=== PATIENT | male | born 1960 | race Caucasian/White ===

== ENCOUNTER 2025-05-17 13:01 | Outpatient (OUT) | payer OTHER, SELFPAY ==
--- OUTSIDE RECORDS SUMMARY | 2025-05-03 13:00 | XMS_ITS | Encounter Summary ---
Author Organization [facility] Address [address] [place] [address] Care Team Providers Care Screen Machine Operator Name Role Phone Maame Hamilton MD Primary Care Provider [phone] Reason for Referral * - Pending ReviewSpecialtyDiagnoses / ProceduresReferred By ContactReferred To Contact Procedures Cryotherapy, skin lesion Erna Brizuela PA-C [address] [place] [address] Phone: tel: fax: Referral IDStatusReasonStart DateExpiration DateVisits RequestedVisits [id number] [id number] Reason for Visit * ReasonCommentsSkin Check Encounter Details DateTypeDepartmentCare Team (Latest Contact Info)Uikbphktquf73/15/2025 1:00 PM ESTFollow-Up [facility] [address] [place] [address] Erna Brizuela PA-C [address] [place] [address] Multiple benign melanocytic nevi (Primary Dx); Actinic keratosis; Seborrheic keratosis; Senile angioma; Dermatofibroma; Solar degeneration; Pruritus Social History Tobacco UseTypesPacks/DayYears UsedDateSmoking Tobacco: FormerCigarettes0.55.4 12/18/1978 - 05/19/1984Passive Smoke Exposure: PastSmokeless Tobacco: Never Tobacco Cessation:Counseling Given: Not Answered Alcohol UseStandard Drinks/WeekCommentsNot Currently0 (1 standard drink = 0.6 oz pure alcohol)Social Connection and Isolation PanelAnswerDate RecordedIn a typical week, how many times do you talk on the phone with family, friends, or neighbors?More than three times a week03/01/2024How often do you get together with friends or relatives?Twice a week03/01/2024How often do you attend samaritan or moravian services?More than 4 times per year03/01/2024o you belong to any clubs or organizations such as samaritan groups, unions, [employer] or athletic luke ups, or school groups?No03/01/2024How often do you attend meetings of the clubs or organizations you belong to?Never03/01/2024re you , , , , never , or living with a partner?Clekdjb5303/01/2024 PHQ-2AnswerDate RecordedPatient Health Questionnaire-2 Rengs19207/01/2024 Humiliation, Afraid, Rape, and Kick questionnaireAnswerDate RecordedWithin the last year, have you been afraid of your partner or ex-partner?No04/29/2025 Emotionally AbusedNot on file04/29/2025Physically AbusedNot on file04/29/2025 Sexually AbusedNot on file04/29/2025UDIT-CAnswerDate RecordedQ1: How often do you have a drink containing alcohol?Never04/30/2025Q2: How many drinks containing alcohol do you have on a typical day when you are drinking?Patient does not drink04/30/2025Q3: How often do you have six or more drinks on one occasion?Never04/30/2025Overall Financial Resource Strain (CARDIA)AnswerDate RecordedHow hard is it for you to pay for the very basics like food, housing, medical care, and heating?Not hard at all04/30/2025[facility] Occupational Health - Occupational Stress QuestionnaireAnswerDate RecordedDo you feel stress - tense, restless, nervous, or anxious, or unable to sleep at night because yourmind is troubled all the time - these days?Not at all04/30/2025 Exercise Vital SignAnswerDate RecordedOn average, how many days per week do you engage in moderate to strenuous exercise (like a brisk walk)?3 days04/30/2025On average, how many minutes do you engage in exercise at this level?30 min 04/30/2025B1300 Health LiteracyAnswerDate RecordedHow often do you need to have someone help you when you read instructions, pamphlets, or other written material from your doctor or pharmacy?Never04/30/2025HC UtilitiesAnswerDate RecordedIn the past 12 months has the [employer], [employer], or water [employer] threatened to shut off services in your home?No04/30/2025TransportationAnswer Date RecordedIn the past 12 months, has lack of transportation kept you from medical appointments or from getting medications?No04/30/2025In the past 12 months, has lack of transportation kept you from meetings, work, or from getting things needed for daily living?No04/30/2025Housing Stability Vital SignAnswer Date RecordedIn the last 12 months, was there a time when you were not able to pay the mortgage or rent on time?No04/30/2025Number of Times Moved in the Last YearNot on file04/30/2025t any time in the past 12 months, were you homeless or living in a mcc (including now)?No04/30/2025Hunger Vital SignAnswerDate RecordedWithin the past 12 months, you worried that your food would run out before you got the money to buymore.Never true04/30/2025Within the past 12 months, the food you bought just didn't last and you didn't have money to get more.Never true04/30/2025Sex and Gender InformationValueDate RecordedSex Assigned at TngczCvlq16/07/2023 10:15 AM EDTLegal SruJgmj0911/15/2021 11:29 PM EDT Gender EckfrvbkByur94/07/2023 10:15 AM EDTSexual OrientationHeterosexual or Ucwxstta96/07/2023 10:15 AM EDTdocumented as of this encounter Last Filed Vital Signs Vital SignReadingTime TakenCommentsBlood Bdckwbwc586/80107/04/2024 12:49 PM EST Pulse--Temperature--Respiratory Rate--Oxygen Saturation--Inhaled Oxygen Concentration--Hvspaj19.7 kg (200 lb)05/03/2025 12:49 PM BVZNsnpjs524.8 cm (5' 10 )05/03/2025 12:49 PM ESTBody Mass Index28.7107/04/2024 12:49 PM ESTdocumented in this encounter Functional Status documented as of this encounter Progress Notes * Erna Brizuela PA-C - 05/03/2025 1:00 PM EST Subjective Barrett Bardales is a 64 y.o. male with hx of alopecia areata and AKs who presents for the following: TBSE. He has noticed a few rough lesions on his back that fall off when picked. He requests a refill of his triamcinolone cream which he uses PRN itching. No other concerns. Patient works for [employer] and he and his live in [facility] for his job. Review of Systems Constitutional: Negative for activity change, appetite change, fatigue and fever. Eyes: Negative for discharge, itching and visual disturbance. Skin: Negative for rash. Positive for lesion. Objective Well appearing patient in no apparent distress; mood and affect are within normal limits. Physical Exam Constitutional: General: He is not in acute distress. Appearance: Normal appearance. He is well-developed. HENT: Head: Normocephalic and atraumatic. Neurological: Mental Status: He is alert and oriented to person, place, and time. Skin Scalp: small waxy brown papules on L posterior scalp and R temporal scalp, smooth red papule on theL temporal scalp Head: few evenly pigmented macules on the forehead and temples, few small waxy brown papules on forehead, elastosis Neck: elastosis Chest: elastosis Abdomen: scattered burger red papules; few waxy papules, including one on the L abdomen, elastosis Back: multiple redundant pigmented macules, few waxy papules and burger red papules, elastosis Buttocks: thin waxy papule on the L buttock Upper Extremities Right: firm reddish papule on R upper arm, elastosis Upper Extremities Left: elastosis Lower Extremities Right: thin waxy papule on R calf, elastosis Lower Extremities Left: elastosis, thin waxy brown papule and smooth red papule on the posterior leg Eccrine/Apocrine Glands: no hyperhidrosis Inspection/Palpation: no tenderness scalp, normal eyebrows Right Upper Back Scaly erythematous papule Assessment/Plan ACTINIC KERATOSIS Right Upper Back Informed consent: Discussed the risks (permanent scarring, light or dark discoloration, infection, pain, bleeding, bruising, redness, blister formation, and recurrence of the lesion) and the benefitsof the procedure, as well as the alternatives. Informed consent was obtained. - Cryotherapy, skin lesion - Right Upper Back Destruction method: cryotherapy Informed consent: discussed and consent obtained Timeout: patient name, date of , surgical site, and procedure verified Lesion destroyed using liquid nitrogen: Yes Cryotherapy cycles: 2 Outcome: patient tolerated procedure well with no complications MULTIPLE BENIGN MELANOCYTIC NEVI SEBORRHEIC KERATOSIS SENILE ANGIOMA DERMATOFIBROMA SOLAR DEGENERATION Diagnoses reviewed with patient. Cryosurgery of one AK on the R upper back after risks reviewed andpatient consented to procedure. No other suspicious lesions on skin exam. Continue triamcinolone cream PRN pruritus. To reduce risk of skin cancer and UV damage, I recommend photoprotective clothing, wide brimmed hats, and sunscreen with SPF 30 or higher applied to exposed skin. Reapply every 2-3 hours while outdoors, or every 60 minutes while swimming or sweating excessively. Call for evaluation of any changing or concerning lesions. Due to presence of sun damage and AKs, I recommend annual skin exams. documented in this encounter Plan of Treatment DateTypeDepartmentCare Team (Latest Contact Info)Tqatkbibape65/17/2026 8:30 AM EDTOffice Visit [facility] [address] [address] Maame Hamilton MD [address] [address] 05/03/2026 7:45 AM ESTOffice Visit [facility] [address] [place] [address] Erna Brizuela PA-C [address] [place] [address] documented as of this encounter Procedures Procedure NamePriorityDate/TimeAssociated DiagnosisCommentsCRYOTHERAPY SKIN DZZKVBUkueruo46/15/2025 1:12 PM EST Actinic keratosis documented in this encounter Results * Cryotherapy, skin lesion (05/03/2025 1:12 PM EST) Narrative Erna Brizuela PA-C - 05/03/2025 1:12 PM EST Destruction method: cryotherapy Informed consent: discussed and consent obtained ?? Timeout: ??patient name, date of , surgical site, and procedure verified Lesion destroyed using liquid nitrogen: Yes ?? Cryotherapy cycles: ??2 Outcome: patient tolerated procedure well with no complications ?? Authorizing ProviderResult TypeResult StatusAshchristin CARLTONCDERM PROCEDURE ORDERABLESFinal Result documented in this encounter Visit Diagnoses Diagnosis Multiple benign melanocytic nevi- Primary Actinic keratosis Seborrheic keratosis Senile angioma Dermatofibroma Benign neoplasm of skin, site unspecified Solar degeneration Other chronic dermatitis due to solar radiation Pruritus Unspecified pruritic disorder documented in this encounter Care Teams Team MemberRelationshipSpecialtyStart DateEnd Date Maame Hamilton MD [address] [facility] [address] [place] [address] PCP - General01/05/22documented as of this encounter
--- OUTSIDE RECORDS SUMMARY | 2025-05-17 13:04 | XMS_ITS | Patient Health Record ---
Author Organization [facility] [place] Address [address] [place] [address] Care Team Providers Care Outreach Liaison Name Role Phone Maame Hamilton MD Primary Care Provider Unavaila ble Allergies Allergen (clinical drug ingredient) Drug/Non Drug Allergy documented on EMR Reaction Allergy Type Onset Date Status cimetidine Tagamet HB Unknown Drug Allergy Active Reason For Referral No Information Medications Medication SIG (Take, Route, Frequency, Duration) Notes Start Date End Date Status amLODIPine Besylate ActiveCitalopram HydrobromideActiveClobetasol PropionateActiveVitamin DActive Aspirin 81ActiveBiotinActiveTimolol MaleateActiveLosartan PotassiumActive Metoprolol Succinate 50 MG1 capsule Orally Once a day; Duration: 30 day(s)Active Moderna COVID-19 Vaccine 100 MCG/0.5MLas directed IntramuscularActiveVitamin B12 1000 MCG1 tablet Orally Once a day; Duration: 30 day(s)ActiveClopidogrel Bisulfate 75 MG1 tablet Orally Once a day; Duration: 30 day(s)ActiveKetoconazole ActivehydroCHLOROthiazide 25 MG1 tablet in the morning Orally Once a day; Duration: 30 day(s)ActivePotassiumActivePrednisoneNot-Taking Immunizations Vaccine Route Administration Date Status Comme nts SARS-COV-2 (COVID 19 Moderna - 100mcg/0.5mL) Unknown 10/18/2020 Pending Social History Tobacco Use: Social History Observation Description Date Details (start date - stop date) Former Smoker NA - NA Tobacco Use/Smoking Question Answer Notes Patient is a former smoker When did you stop smoking?1991Alcohol Screen (Audit-C) Question Answer Notes Did you have a drink containing alcohol in the p ast year? Yes How often did you have a drink containing alcohol in the past year?Weekly (3 points)Uoxbfq2DdlymesapjtvudFwwwwioz Problems Problem Type SNOMED Code ICD Code Onset Dates Problem Status W/U Status Risk Notes Problem Testicular hypofunction (675544508) Testi cular hypofunction (E29.1) ActiveconfirmedProblemMale hypogonadism (63469523)Hypogonadism in male (E29.1) ActiveconfirmedProblemMyocardial infarct (86950205)Myocardial infarct (I21.3) Activeconfirmed Plan Of Treatment Pending Test Test Name Order Date CBC (COMPLETE BLOOD COUNT) * 09/17/2016 CBC (COMPLETE BLOOD COUNT) * 03/22/2017 HGB and HCT 04/18/2018 PROSTATIC SPEC ANT 03/22/2017 TESTOSTERONE 03/22/2017 TESTOSTERONE 10/01/2016 TESTOSTERONE 11/12/2016 TESTOSTERONE 02/18/2017 TESTOSTERONE 09/17/2016 CHOLESTEROL 09/17/2016 FSH 09/17/2016 LH 09/17/2016 LIVER PANEL 09/17/2016 LIVER PANEL 03/22/2017 PROLACTIN 09/17/2016 PSA SCREEN 09/17/2016 Future Test Test Name Order Date TESTOSTERONE, TOTAL 03/31/2019 TESTOSTERONE, TOTAL 05/12/2019 CHOLESTEROL, TOTAL 05/18/2019 CBC NO DIFF 05/18/2019 LIVER (HEPATIC) PANEL 05/18/2019 PSA Total 05/18/2019 PSA Total 06/18/2019 TESTOSTERONE, TOTAL 12/03/2019 TESTOSTERONE, TOTAL 01/14/2020 CHOLESTEROL, TOTAL 01/20/2020 CBC NO DIFF 01/20/2020 LIVER (HEPATIC) PANEL 01/20/2020 PSA Total 01/20/2020 TESTOSTERONE, TOTAL 05/03/2020 TESTOSTERONE, TOTAL 06/14/2020 CHOLESTEROL, TOTAL 06/20/2020 CBC NO DIFF 06/20/2020 LIVER (HEPATIC) PANEL 06/20/2020 PSA Total 06/20/2020 TESTOSTERONE, TOTAL 08/09/2020 TESTOSTERONE, TOTAL 09/20/2020 CHOLESTEROL, TOTAL 09/26/2020 CBC NO DIFF 09/26/2020 LIVER (HEPATIC) PANEL 09/26/2020 PSA Total 09/26/2020 TESTOSTERONE, TOTAL 11/29/2020 TESTOSTERONE, TOTAL 01/10/2021 CHOLESTEROL, TOTAL 01/16/2021 CBC NO DIFF 01/16/2021 LIVER (HEPATIC) PANEL 01/16/2021 PSA Total 01/16/2021 TESTOSTERONE, TOTAL 03/09/2021 CBC WITH DIFF (EXP 03/2025) 04/06/2021 LIVER (HEPATIC) PANEL 04/06/2021 TESTOSTERONE, TOTAL 04/06/2021 PSA Total 04/06/2021 TESTOSTERONE, TOTAL 04/20/2021 CHOLESTEROL, TOTAL 04/26/2021 CBC NO DIFF 04/26/2021 LIVER (HEPATIC) PANEL 04/26/2021 PSA Total 04/26/2021 Insurance Providers Payer Name Payer Address Payer Phone Subscriber Number Group Number Insured Name Patient Relationship to Insured Coverage Start Date Coverage End Date [employer] [address] [place]AH JANS[place]ameron JLUIS [phone] [id number] [phone] Barrett Bardales Self - patient is the insured 2014 Medications Administered Medication Instructions Date of Administration Dosage Notes Testopel jghhsVlgyrfqf18/04/202010 dvopdNnrcxonx00/03/202014 units1 pellet lot #[id number] exp 10/[id number]/09/202114 unitsused 5 pellets from lot #[id number], Exp 10/[id number]/01/202114 unitsused 4 pellets from lot [id number] EXP 12/2022 Znpxiwlf41 units Medical (General) History Medical History History ICD Code fatigue hypertensionrash and other nonspecific skin eruptionTesticular fxuttaykmmzfM26.1 Elevated PSAR97.20Kidney ypgdtJ24.0heart attackSurgical History Surgery Date(Month/Year) cardiac stents 02/20/21 Testopel 03/22/2020 Prostate biopsy 07/28/2019 tonsillectomy repair shoulder, rightinguinal hernia repairTestopel aieovlgja31/1/19
--- OUTSIDE RECORDS SUMMARY | 2025-05-17 13:05 | XMS_ITS | Clinical Summary ---
Author Organization [facility] tem Address [id number] [address] [place] [address] Care Team Providers Care Entry Level Name Role Phone Maame Hamilton MD Primary Care Provider [phone] Allergies Active AllergyReactionsCriticalityNoted WcvnXmmzgdojLtidtsolbj67/29/2021 Medications MedicationSigDispense QuantityRefillsLast FilledStart DateEnd DateStatus fluticasone propionate (FLONASE) 50 mcg/actuation nasal spray Administer 1 spray into each nostril in the morning. 16 g 02/18/2022ctive predniSONE (DELTASONE) 10 mg tablet 40 mg x 3 days, 30 mg x 3 days, 20 mg x 3 days, 10 mg x 3 days, 5 mg x 3 days. 32 tablet 01/25/2024ctive cyclobenzaprine (FLEXERIL) 10 mg tablet Take 1 tablet (10 mg total) by mouth 3 (three) times a day as needed (severe pain, spasm or to helpsleep) for up to 15 doses. 15 tablet 01/25/2024ctive Active Problems No known active problems Immunizations ImmunizationAdministration DatesNext DueCOVID-19, mRNA, LNP-S, PF, 100mcg/0.5mL Dose04/06/2021Influenza, Injectable, quadrivalent (PF)03/17/2019,02/11/2018, 03/05/2017 Social History Tobacco UseTypesPacks/DayYears UsedDateSmoking Tobacco: FormerSmokeless Tobacco: FormerChildcareAnswerDate QpxwyucyTigcfgduiPnqamrg04/12/2019EmploymentAnswerDate KzmmxsniGspiozbrdlTtxlvqg30/12/2019Hunger ScreeningAnswerDate RecordedWithin the past 12 months we worried whether our food would run out before we got money to buy more.Never True01/25/2024Within the past 12 months the food we bought just didn't last and we didn't have money to get more.Never True4Purpose - LifeAnswerDate RecordedPurpose and direction in rxriZvxorzm78/11/2021ex and Gender InformationValueDate RecordedSex Assigned at BirthNot on fileLegal Sex Male10/28/2015 8:40 AM EDTGender IdentityNot on fileSexual OrientationNot on file Last Filed Vital Signs Vital SignReadingTime TakenCommentsBlood Lgthttrh362/7301/25/2024 2:00 PM EDT Ehqmw252601/25/2024 2:00 PM PAXCgveptwojjp64.3 ??C (97.3 ??F)01/25/2024 12:04 PM EDTRespiratory Oilc266401/25/2024 2:00 PM EDTOxygen Qnhtjolqrb90%01/25/2024 2:00 PM EDTInhaled Oxygen Concentration--Tjnxuq63.2 kg (190 lb)01/25/2024 12:04 PM FVGZnmcyq046.8 cm (5' 10 )01/25/2024 12:04 PM EDTBody Mass Index27.2609 12:04 PM EDT Plan of Treatment Health MaintenanceDue DateLast DoneCommentsDepression Rsvoivigv02/19/1972Tobacco Lgtaufyjx63/19/1972RSV ( or age 60+ yrs) (1 - Risk 50-74 years 1-dose series)12/05/2009Fall Risk Kxneqatoh68/19/2025COVID-19 Vaccine ( season)/, 11/17/2020, 10/18/2020, Additional history exists Influenza Kcubxae69/, 03/20/2018, 02/11/2018, Additional history existsAdult BMI Pknqcyoev20/07/7685884DTaP,Tdap and Td Vaccines (3 - Td or Tdap), 05/20/2013Zoster (Shingles) Vaccine Onulkmxdy22/01/2020, 08/02/2019, 05/23/2019, Additional history exists Medical Devices Not on file Insurance Care Teams Team MemberRelationshipSpecialtyStart DateEnd Maame Hamilton MD [address] [facility] [address] [place] [id number] PCP - GeneralFamily Kkthqtfa78/2/22
--- OUTSIDE RECORDS SUMMARY | 2025-05-17 13:05 | XMS_ITS | Clinical Summary ---
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 Name Role Phone Maame Hamilotn MD Primary Care Provider [phone] Allergies Active AllergyReactionsCriticalityNoted OjyeFarolotwMzsowykfylhtVbhhq79/18/2024 myalgias CimetidineGI qhsblfamaiw64/29/2021 Medications MedicationSigDispense QuantityRefillsLast FilledStart DateEnd DateStatus aspirin 81 mg EC tablet Take 1 tablet every day by oral route.Active biotin 1 mg tablet Take by oral route.Active cholecalciferol (Vitamin D-3) 25 MCG (1000 UT) tablet Take 1 tablet by mouth in the morning.08/10/2020ctive fluticasone (Flonase) 50 mcg/actuation nasal spray instill 1 spray into each nostril twice a dayActive timolol (Timoptic) 0.5 % ophthalmic solution 03/20/2021ctive cyanocobalamin (Vitamin B-12) 1,000 mcg tablet Take 1,000 mcg by mouth in the morning.Active atorvastatin (Lipitor) 80 mg tablet Indications:Hyperlipidemia, unspecified hyperlipidemia typeTake 1 tablet (80 mg) by mouth at bedtime. 90 tablet ctive rosuvastatin (Crestor) 20 mg tablet Indications:Hyperlipidemia, unspecified hyperlipidemia typeTake 1 tablet (20 mg) by mouth at bedtime. 90 tablet 0/6Active amLODIPine (Norvasc) 5 mg tablet Indications:Essential hypertensionTake 1 tablet (5 mg) by mouth once daily as directed. 90 tablet 5Active losartan (Cozaar) 100 mg tablet Indications:Hypertension, unspecified typeTake 1 tablet (100 mg) by mouth once daily as directed. 90 tablet 5Active clopidogrel (Plavix) 75 mg tablet Indications:Myocardial infarction, unspecified IA type, unspecified artery (CMS/HCC)Take 1 tablet (75 mg) by mouth once daily as directed. 90 tablet 5Active hydroCHLOROthiazide (HYDRODiuril) 25 mg tablet Indications:Essential hypertensionTake 1 tablet (25 mg) by mouth in the morning. 90 tablet 5Active citalopram (CeleXA) 20 mg tablet Indications:Depression, unspecified depression typeTake 1 tablet (20 mg) by mouth in the morning. 30 tablet 03/11/2025tive metoprolol tartrate (Lopressor) 50 mg tablet Indications:Hypertension, unspecified typeTake 1.5 tablets (75 mg) by mouth two times daily. 60 tablet 03/11/2025tive dapagliflozin propanediol (Farxiga) 10 mg Indications:Coronary artery disease due to lipid rich plaque,Other fatigue, Hyperlipidemia, unspecified hyperlipidemia type,Congestive heart failure, unspecified HF chronicity, unspecified heart failure type (CMS/HCC)Take 1 tablet (10 mg) by mouth in the morning. 30 tablet 6Active dapagliflozin propanediol (Farxiga) 10 mg Indications:Congestive heart failure, unspecified HF chronicity, unspecified heart failure type (CMS/HCC)Take 1 tablet (10 mg) by mouth in the morning. 30 tablet 6Active triamcinolone (Kenalog) 0.1 % cream Indications:PruritusApply to itchy areas on body twice daily as needed 45 g 5Active triamcinolone (Kenalog) 0.1 % cream Indications:PruritusApply to itchy areas on body twice daily as needed 45 g Discontinued(Reorder) metoprolol tartrate (Lopressor) 50 mg tablet Indications:Hypertension, unspecified typeTake 1.5 tablets (75 mg) by mouth two times daily. 90 tablet Discontinued(Therapy completed) citalopram (CeleXA) 20 mg tablet Indications:Depression, unspecified depression typeTake 1 tablet (20 mg) by mouth in the morning. 90 tablet Discontinued(Therapy completed) dapagliflozin propanediol (Farxiga) 10 mg Indications:Congestive heart failure, unspecified HF chronicity, unspecified heart failure type (CMS/HCC)Take 1 tablet (10 mg) by mouth in the morning. 90 tablet Discontinued(Therapy completed)Hospital, Clinic, or Other Facility Administered MedicationOrdered DoseRouteFrequencyStart DateEnd Date Status lidocaine (PF) (Xylocaine) 10 mg/mL (1 %) injection 0.5 mL Indications:Arthritis of carpometacarpal (CMC) joint of left thumb,Arthritis of carpometacarpal (CMC) joint of right thumb.5 mLIAtcOnce PRN Wjjieezgo03/11/2025 04/29/2025Ended lidocaine (PF) (Xylocaine) 10 mg/mL (1 %) injection 0.5 mL Indications:Arthritis of carpometacarpal (CMC) joint of left thumb,Arthritis of carpometacarpal (CMC) joint of right thumb.5 mLIAtcOnce PRN Hhwzjklmy14/11/2025 04/29/2025Ended triamcinolone acetonide (Kenalog-10) (Kenalog) injection 5 mg Indications:Arthritis of carpometacarpal (CMC) joint of left thumb,Arthritis of carpometacarpal (CMC) joint of right thumb5 mgIAtcOnce PRN Wonijqumx68/11/2025 04/29/2025Ended triamcinolone acetonide (Kenalog-10) (Kenalog) injection 5 mg Indications:Arthritis of carpometacarpal (CMC) joint of left thumb,Arthritis of carpometacarpal (CMC) joint of right thumb5 mgIAtcOnce PRN Jcdmuqsms90/11/2025 04/29/2025Ended Active Problems ProblemNoted DateDiagnosed DateCurrent mild episode of major depressive disorder 03/02/20244765Jhonrymkgvexfq36/14/2024History of umbilical hernia nkuajb3508/13/2023 Actinic spfjeoosy72Senile jheqrpwlyzdsfg78 Depressive trmluaqd87/27/4391Vcrhvopkgmis54/27/2022oronary atherosclerosis 03/10/2021 Resolved Problems ProblemNoted DateDiagnosed DateResolved DateTesticular bhrkseudteod19/26/2024/bdominal painlopecia areata Lateral rgiedntefjhep6402/08/2023Neoplasm of uncertain behavior of skin Solar zspyctxglvrm85ngina pectoris, unstable Sleep apneaUmbilical nfdrkj6302/13/2022 08/13/2023cute non-ST segment elevation myocardial secmdcnhmc78/22/2021 07/31/2022Myocardial smqxyrj77dverse effect of amlodipine Encounter for general adult medical examination without abnormal eulblajz49Encounter for immunization 5Acute sjfwpieqp46ontact znnsukjome22 Encounters DateTypeDepartmentCare VmyeIcgnrfjatqo18/17/2025Results Follow-Up [facility] [address] [place] [address] Miya Choi MA Comprehensive metabolic panel, Lipid panel, CBC auto dzkxudtgpkaz64/15/2025 1:00 PM ESTFollow-Up [facility] [address] [place] [address] Erna Brizuela PA-C Multiple benign melanocytic nevi (Primary Dx); Actinic keratosis; Seborrheic keratosis; Senile angioma; Dermatofibroma; Solar degeneration; Szugsygz66/15/2025[facility] [address] [place] [address] Ann Marie Quijano MA 04/30/2025 10:00 AM ESTOffice Visit [facility] [address] [address] Maame Hamilton MD Routine general medical examination at a health care facility (Primary Dx); Atherosclerosis of coronary artery without angina pectoris, unspecified vessel or lesion type, unspecified whether [place] or transplanted heart; Primary hypertension; Hyperlipidemia, unspecified hyperlipidemia type; Screening for prostate zzltxj8904/30/2025[facility] [address] [place] [address] Ann Marie Quijano MA Congestive heart failure, unspecified HF chronicity, unspecified heart failure type (CMS/HCC)04/29/2025 1:00 PM [facility] [address] [place] [address] [place] [phone] Emma Ballard MD Arthritis of carpometacarpal (CMC) joint of left thumb (Primary Dx); Arthritis of carpometacarpal (CMC) joint of right thumb04/29/2025 10:15 AM EST Office [facility] [address] [place] [address] Pino Zavala MD Chronic heart failure with preserved ejection fraction (HFpEF) (CMS/HCC) (Primary Dx); Coronary artery disease involving [place] coronary artery of [place] heart without angina pectoris; Essential hypertension; Dyspnea on jwlxnidg59/11/2025 8:05 AM ESTLab v2tel [facility] [address] [address] Routine general medical examination at a health care facility; Hyperlipidemia, unspecified hyperlipidemia type04/29/2025[facility] [address] [place] [address] Melanie Bangura MA Shortness of breath (Primary Dx)04/29/2025Orders Only [facility] [address] [place] [facility] [place] [address] Angy Christensen MA Congestive heart failure, unspecified HF chronicity, unspecified heart failure type (CMS/HCC) (Primary Dx)04/29/2025Orders Only [facility] [address] [place] [facility] [place] [address] Angy Christensen MA Coronary artery disease due to lipid rich plaque (Primary Dx); Other fatigue; Hyperlipidemia, unspecified hyperlipidemia type; Congestive heart failure, unspecified HF chronicity, unspecified heart failure type (CMS/HCC)03/12/[address] [address] [place] [phone] Juanita Walters MA Depression, unspecified depression type03/11/2025Orders [facility] Care [address] [place] [address] Maame Hamilton MD Depression, unspecified depression type; Hypertension, unspecified type03/11/2025[facility] [address] [address] Erna Vanessa MA Hypertension, unspecified type; Depression, unspecified depression type03/10/[address] [id number] Miya Choi MA 03/09/2025[facility] [address] [place] [facility] [place] [address] Melanie Bangura MA Hyperlipidemia, unspecified hyperlipidemia type; Essential hypertension; Hypertension, unspecified type; Myocardial infarction, unspecified IA type, unspecified artery (CMS/HCC) 03/03/2025[facility] [address] [place] [address] Daysi Reynoso MA Essential hypertension; Hypertension, unspecified type; Myocardial infarction, unspecified IA type, unspecified artery ([facility]) 02/19/2025Refill [facility] [place] [facility] [address] [place] [address] Pino Zavala MD Hypertension, unspecified typefrom Last 3 Months Immunizations ImmunizationAdministration DatesNext DueInfluenza, High Dose Seasonal, Preservative Free04/30/2025Influenza, injectable, kxhloclvnoey62/01/2018 Influenza, injectable, quadrivalent, preservative free03/17/2019,02/11/2018, 03/05/2017Moderna 12 YR UP Vaccine BiValent Trcpcqt0311/17/2020,10/18/2020Moderna SARS-CoV-2 Zgifwmqkyqs88/18/2021,11/17/2020,10/18/2020,1Pneumococcal Conjugate PCV Tdap08/13/2023,05/20/2013Zoster, Xuzfllazrju00/01/2020 ,08/02/2019,05/23/2019,11/07/2018 Family History Medical HistoryRelationNameCommentsHeart diseaseFatherBelinda.Freda Bardales JrProstate cancerFatherBelinda.Freda Bardales, StrokeFatherBelinda.Freda Bardales JrcerebrovascularFather Tony Bardales, Alzheimer's diseaseMaternal GrandmotherEdna Flood Anmol DiabetesMaternal GrandmotherEdna Flood BrowderHypertensionMotherTony Bardales CancerPaternal GrandfatherBelinda.Freda Bardales, .Alzheimer's diseasePaternal GrandmotherRelationNameStatusCommentsFatherBelinda.Freda Bardales JrMaternal Grandmother Tara Flood BrowderMotherQuinnan LesleyyPaternal GrandfatherTony Bradales, . Paternal Grandmother Social History Tobacco UseTypesPacks/DayYears UsedDateSmoking Tobacco: FormerCigarettes0.55.4 [...] relatives?Twice a week03/01/2024How often do you attend orthodoxy or restoration services?More than 4 times per year03/01/2024o you belong to any clubs or organizations such as orthodoxy groups, unions, [employer] or athletic luke ups, or school groups?No03/01/2024How often do you attend meetings of the clubs or organizations you belong to?Never03/01/2024re you , , , , never , or living with a partner?Xfpoqup3303/01/2024 PHQ-2AnswerDate RecordedPatient Health Questionnaire-2 Hxjrn56707/01/2024 Humiliation, Afraid, Rape, and Kick questionnaireAnswerDate RecordedWithin [...] housing, medical care, and heating?Not hard at all04/30/2025[facility], [facility] [place] of Occupational Health - Occupational Stress QuestionnaireAnswerDate [...] RecordedIn the past 12 months has the [employer], [employer], or [employer]) threatened to shut off services in your [...] were you homeless or living in a chcf (including now)?No04/30/2025Hunger Vital SignAnswerDate RecordedWithin the past 12 months, you worried that your food would run out before you got the money to buymore.Never true04/30/2025Within the past 12 months, the food you bought just didn't last and you didn't have money to get more.Never true04/30/2025Sex and Gender InformationValueDate RecordedSex Assigned at NqptaJvzc51/07/2023 10:15 AM EDTLegal PeuPjob8211/15/2021 11:29 PM EDT Gender AnictqryEhps18/07/2023 10:15 AM EDTSexual OrientationHeterosexual or Jntbsbpx89/07/2023 10:15 AM EDT Last Filed Vital Signs Vital SignReadingTime TakenCommentsBlood Whkqajxw078/80107/04/2024 12:49 PM EST Neubg261804/30/2025 9:47 AM QWHVrggjokbngg87.7 ??C (98.1 ??F)08/13/2023 8:59 AM EDTRespiratory Ianj212008/13/2023 8:59 AM EDTOxygen Vnvwyglovx13%04/30/2025 9:47 AM ESTInhaled Oxygen Concentration--Plmfpk46.7 kg (200 lb)05/03/2025 12:49 PM DCWXpeero733.8 cm (5' 10 )05/03/2025 12:49 PM ESTBody Mass Index28.7107/04/2024 12:49 PM EST Plan of Treatment DateTypeDepartmentCare Team (Latest Contact Info)Svdwzkjdzli05/17/2026 8:30 AM EDTOffice Visit [facility] [address] [address] Maame Hamilton MD [address] [address] 05/03/2026 7:45 AM ESTOffice Visit [facility] [address] [place] [address] Erna Brizuela PA-C [address] [place] [address] Health MaintenanceDue DateLast DoneCommentsCT Fgxfmijchfrf16/19/1960Colonoscopy 1959Colorectal Cancer Vuohjcyhj44/19/1960FIT-DNA1959FIT1959 FOBT1959Medicare Initial Physical (IPPE)1960 0738Dboyopnnptkuz35/19/1960 Depression Ispqzhhsy08Fall Risk Txuylhenc23 Adult Vcufsbo34, 05/20/2013Zoster IbsdlizbHttffhgni92/01/2020, 08/02/2019, 05/23/2019, Additional history existsCOVID-19 VaccineDiscontinued 04/06/2021, 04/06/2021, 11/17/2020, Additional history existsPneumococcal Vaccine: 50+ HizcgDqyxjjlnt40/26/2024Influenza BicabedTgojzvbgqxnf33/12/2025, 03/17/2019, 03/20/2018, Additional history existsHIB VaccinesAged OutNo longer eligible based on patient's age to complete this topicHPV VaccinesAged OutNo longer eligible based on patient's age to complete this topicIPV VaccinesAged OutNo longer eligible based on patient's age to complete this topicMeningococcal B VaccineAged OutNo longer eligible based on patient's age to complete this topicMeningococcal VaccineAged OutNo longer eligible based on patient's age to complete this topicRotavirus VaccinesAged OutNo longer eligible based on patient's age to complete this topic Procedures Procedure NamePriorityDate/TimeAssociated DiagnosisCommentsCRYOTHERAPY SKIN OVEFUPRgwwkdp97/15/2025 1:12 PM EST Actinic keratosis ARTHROCENTESIS ASPIR&/INJ SMALL JT/BURSA W/O US GKKBGHJSBJpzobaf17/11/2025 1:07 PM EST Arthritis of carpometacarpal (CMC) joint of left thumb Arthritis of carpometacarpal (CMC) joint of right thumb BILIRUBIN, BYCPTPCnznmla32/11/2025 8:14 AM EST Hyperlipidemia, unspecified hyperlipidemia type CBC WITH AUTO ZXKQVOIERDVHEjpzkyg14/11/2025 8:14 AM EST Routine general medical examination at a health care facility LIPID CRSEJMvqhpsz06/11/2025 8:14 AM EST Routine general medical examination at a health care facility CBC AND PMOPKBRYIGYLCwqctfj04/11/2025 8:14 AM EST Routine general medical examination at a health care facility COMPREHENSIVE METABOLIC UGMIMAlofbrx64/11/2025 8:14 AM EST Routine general medical examination at a health care facility from Last 3 Months Results * Cryotherapy, skin lesion (05/03/2025 1:12 PM EST) Narrative Erna Brizuela PA-C - 05/03/2025 1:12 PM EST Destruction method: cryotherapy Informed consent: discussed and consent obtained ?? Timeout: ??patient name, date of , surgical site, and procedure verified Lesion destroyed using liquid nitrogen: Yes ?? Cryotherapy cycles: ??2 Outcome: patient tolerated procedure well with no complications ?? Authorizing ProviderResult TypeResult StatusErna CARRASQUILLO-CDERM PROCEDURE ORDERABLESFinal Result * ARTHROCENTESIS ASPIR&/INJ SMALL JT/BURSA W/O US BILATERAL (04/29/2025 1:07 PM EST) Emma Leger MD - 04/29/2025 1:07 PM EST Emma Ballard MD 05/02/2025 1:27 PM Small Joint: bilateral thumb CMC on 04/29/2025 1:07 PM Details: 27 G needle, dorsal approach Medications (Right): 0.5 mL lidocaine (PF) 10 mg/mL (1 %); 5 mg triamcinolone acetonide (Kenalog-10) 10 mg/mL Medications (Left): 0.5 mL lidocaine (PF) 10 mg/mL (1 %); 5 mg triamcinolone acetonide (Kenalog-10) 10 mg/mL Outcome: tolerated well, no immediate complications Procedure, treatment alternatives, risks and benefits explained, specific risks discussed. Consent was given by the patient. Immediately prior to procedure a time out was called to verify the correct patient, procedure, equipment, accounting support specialist and site/side marked as required. Patient was prepped and draped in the usual sterile fashion. Authorizing ProviderResult TypeResult StatusEmma Ballard MDIN CLINIC/BEDSIDE ORDERABLESFinal Result * (ABNORMAL) CBC auto differential (04/29/2025 8:14 AM EST)ComponentValueRef RangeTest MethodAnalysis TimePerformed AtPathologist SignatureAuto WBC5.704.00 - 10.60 10*3/uL04/29/2025 1:24 PM [facility] ([facility])RBC4.794.20 - 5.70 10*6/uL04/29/2025 1:24 PM [facility] ([facility])Bfdhckatkn77.013.0 - 17.0 g/dL04/29/2025 1:24 PM [facility] ([facility])Ncmmhtugfx86.439.0 - 50.0 %04/29/2025 1:24 PM [facility] ([facility])MCV90.682.0 - 98.0 fL 04/29/2025 1:24 PM [facility] ([facility])MCH31.327.0 - 33.0 pg 04/29/2025 1:24 PM [facility] ([facility])MCHC34.632.0 - 35.0 g/dL 04/29/2025 1:24 PM [facility] ([facility])RDW13.211.5 - 15.0 %04/29/2025 1:24 PM [facility] ([facility])Neutrophils %63.540.0 - 72.0 %04/29/2025 1:24 PM [facility] ([facility])Lymphocytes %17.4(L)20.0 - 45.0 % 04/29/2025 1:24 PM [facility] ([facility])Monocytes %14.4(H)5.0 - 12.0 % 04/29/2025 1:24 PM [facility] ([facility])Eosinophils %4.00.0 - 6.0 % 04/29/2025 1:24 PM [facility] ([facility])Basophils %0.50.0 - 1.0 % 04/29/2025 1:24 PM [facility] ([facility])Neutrophils Absolute3.621.60 - 7.60 10*3/uL04/29/2025 1:24 PM [facility] ([facility])Lymphocytes Absolute0.99(L)1.20 - 4.00 10*3/uL04/29/2025 1:24 PM [facility] ([facility])Monocytes Absolute0.820.10 - 1.00 10*3/uL04/29/2025 1:24 PM [facility] ([facility])Eosinophils Absolute0.230.00 - 0.50 10*3/uL04/29/2025 1:24 PM [facility] ([facility])Basophils Absolute0.030.00 - 0.20 10*3/uL 04/29/2025 1:24 PM [facility] ([facility])Sfkkvrvls322160 - 400 10*3/uL 04/29/2025 1:24 PM [facility] ([facility])nRBC %0.00 %04/29/2025 1:24 PM [facility] ([facility])Immature Granulocytes %0.20.0 - 1.0 % 04/29/2025 1:24 PM [facility] ([facility])Immature Granulocytes Absolute 0.010.00 - 0.20 10*3/uL04/29/2025 1:24 PM [facility] ([facility]) Specimen (Source)Anatomical Location / LateralityCollection Method / Volume Collection TimeReceived TimeBloodVenous blood specimen / UnknownVenipuncture / Buudofq2604/29/2025 8:14 AM EST04/29/2025 8:14 AM EST Narrative Authorizing ProviderResult TypeResult StatusChayanjohny Hamilton MDLAB BLOOD ORDERABLES Final ResultPerforming OrganizationAddressCity/State/ZIP CodePhone Number [facility]) [address] [place], [place] [id number] * Bilirubin, direct (04/29/2025 8:14 AM EST)ComponentValueRef RangeTest Method Analysis TimePerformed AtPathologist SignatureBilirubin, Direct0.10 - 0.2 mg/dL04/29/2025 1:15 PM [facility])Specimen (Source) Anatomical Location / LateralityCollection Method / VolumeCollection Time Received TimeBloodVenous blood specimen / UnknownVenipuncture / Unknown 04/29/2025 8:14 AM EST04/29/2025 8:14 AM EST Narrative Authorizing ProviderResult TypeResult StatusEhab Lucas MDLAB BLOOD ORDERABLES Final ResultPerforming OrganizationAddressCity/State/ZIP CodePhone Number [facility]) [address] [place] [address] * Lipid panel (04/29/2025 8:14 AM EST)ComponentValueRef RangeTest MethodAnalysis TimePerformed AtPathologist JyslehynlMyljqehcfkkye478<150 mg/dL04/29/2025 1:15 PM [facility])Comment: TRIGLYCERIDE REFERENCE RANGE: 20 YEARS AND OLDER ?CARDIOVASCULAR RISK LESS THAN 150 mg/dL ? LOW RISK 150 TO 199 mg/dL ?BORDERLINE RISK 200 mg/dL AND GREATER ? HIGH RISK Ulcmyvdjhdy540271 - 200 mg/dL04/29/2025 1:15 PM [facility] ([facility])LDL Ctwluwscvd837 - 160 mg/dL04/29/2025 1:15 PM [facility] ([facility])ZAL6706 - 92 mg/dL04/29/2025 1:15 PM [facility] ([facility])Non HDL Fowighktbus989 04/29/2025 1:15 PM [facility] ([facility])Total VLDL-C220 - 40 mg/dL 04/29/2025 1:15 PM [facility] ([facility])Cholesterol/HDL Ratio3.2mg/dL 04/29/2025 1:15 PM [facility] ([facility])Specimen (Source)Anatomical Location / LateralityCollection Method / VolumeCollection TimeReceived TimeBlood Venous blood specimen / UnknownVenipuncture / Gtjtpvy4404/29/2025 8:14 AM EST 04/29/2025 8:14 AM EST Narrative Authorizing ProviderResult TypeResult StatusChabela Hamilton MDLAB BLOOD ORDERABLES Final ResultPerforming OrganizationAddressCity/State/ZIP CodePhone Number [facility] ([facility]) [address] [place] [address] * (ABNORMAL) Comprehensive metabolic panel (04/29/2025 8:14 AM EST)Component ValueRef RangeTest MethodAnalysis TimePerformed AtPathologist SignatureSodium 134(L)136 - 145 mmol/L106/30/2024 1:15 PM [facility] ([facility]) Potassium3.53.5 - 5.1 mmol/L106/30/2024 1:15 PM [facility] ([facility]) Drcyvizb5669 - 107 mmol/L106/30/2024 1:15 PM [facility] ([facility])CO228 21 - 31 mmol/L106/30/2024 1:15 PM [facility] ([facility])Anion Mdq318 - 20 mmol/L106/30/2024 1:15 PM [facility] ([facility])PDU626 - 25 mg/dL 04/29/2025 1:15 PM [facility] ([facility])Creatinine0.990.70 - 1.30 mg/dL04/29/2025 1:15 PM [facility] ([facility])BUN/Creatinine Ratio12.1 04/29/2025 1:15 PM [facility] ([facility])Ckwzpam5206 - 100 mg/dL 04/29/2025 1:15 PM [facility] ([facility])Calcium9.08.6 - 10.3 mg/dL 04/29/2025 1:15 PM [facility] ([facility])VCF3537 - 39 U/L106/30/2024 1:15 PM [facility] ([facility])ALT (SGPT)257 - 52 U/L106/30/2024 1:15 PM [facility] ([facility])Alkaline Wneyboalxgw4273 - 104 U/L106/30/2024 1:15 PM [facility] ([facility])Total Protein7.26.0 - 8.3 g/dL04/29/2025 1:15 PM [facility] ([facility])Albumin4.43.5 - 5.7 g/dL04/29/2025 1:15 PM [facility] ([facility])Total Bilirubin0.50.3 - 1.0 mg/dL04/29/2025 1:15 PM [facility] ([facility])eGFR84.5>60.0 mL/min/1.73m* 1:15 PM [facility] ([facility])Comment:[facility]???s estimated glomerular filtration rate (eGFR) will no longer include consideration of race in its calculation. The [employer]???s eGFR Task Force developed new recommendations for the estimation of the glomerular filtration rate in the [place] They recommend immediate implementation of the new equation refit without the race variable in all laboratories because the calculation does not include race. In addition to not including race in the calculation and reporting, it included diversity in its development, and has acceptable performance characteristics and potential consequences that do not disproportionately affect any one group of ind ividuals.Specimen (Source)Anatomical Location / LateralityCollection Method / VolumeCollection TimeReceived TimeBloodVenous blood specimen / Unknown Venipuncture / Dsthrdg3204/29/2025 8:14 AM EST04/29/2025 8:14 AM EST Narrative Authorizing ProviderResult TypeResult StatusChabela MARQUIS BLOOD ORDERABLES Final ResultPerforming OrganizationAddressCity/State/ZIP CodePhone Number [facility] [address] [place] [address] from Last 3 Months Insurance Care Teams Team MemberRelationshipSpecialtyStart DateEnd Date Maame Hamilton MD [address] [facility] [address] [place] [phone] [facility]01/05/22
--- OUTSIDE RECORDS SUMMARY | 2025-05-17 13:05 | XMS_ITS | Encounter Summary ---
Author Organization [facility] Address [address] [place] [address] Care Team Providers Care Surveyor Helper Rod Name Role Phone Maame Hamilton MD Primary Care Provider [phone] Reason for Visit * ReasonOnset DateCommentsMed Gysrra9605/03/2025 Encounter Details DateTypeDepartmentCare Team (Latest Contact Info)Goyrcwjpclq11/15/2025[facility] [address] [place] [phone] Ann Marie Quijano MA Social History Tobacco UseTypesPacks/DayYears UsedDateSmoking Tobacco: FormerCigarettes0.55.4 12/18/1978 - 05/19/1984Passive Smoke Exposure: PastSmokeless Tobacco: Never Alcohol UseStandard Drinks/WeekCommentsNot Currently0 (1 standard drink = 0.6 oz pure alcohol)Social Connection and Isolation PanelAnswerDate RecordedIn a typical week, how many times do you talk on the phone with family, friends, or neighbors?More than three times a week03/01/2024How often do you get together with friends or relatives?Twice a week03/01/2024How often do you attend samaritan or jain services?More than 4 times per year4Do you belong to any clubs or organizations such as samaritan groups, unions, fraternal or athletic luke ups, or school groups?No03/01/2024How often do you attend meetings of the clubs or organizations you belong to?Never4Are you , , , , never , or living with a partner?Byuuwld0003/01/2024 PHQ-2AnswerDate RecordedPatient Health Questionnaire-2 Tjcdo16307/01/2024 Humiliation, Afraid, Rape, and Kick questionnaireAnswerDate RecordedWithin [...] housing, medical care, and heating?Not hard at all04/30/2025[facility] [place] [facility] - Occupational Stress QuestionnaireAnswerDate [...] RecordedIn the past 12 months has the [employer], gas, oil, or water [employer] threatened to shut off services in your [...] true04/30/2025Sex and Gender InformationValueDate RecordedSex Assigned at QnpahVcpn58/07/2023 10:15 AM EDTLegal LkuYopb9811/15/2021 11:29 PM EDT Gender TpvhfmnuJzwy29/07/2023 10:15 AM EDTSexual OrientationHeterosexual or Nzrnkgzd84/07/2023 10:15 AM EDTdocumented as of this encounter Plan of Treatment DateTypeDepartmentCare Team (Latest Contact Info)Ihdxpcvcqlj78/17/2026 8:30 AM EDTOffice Visit [facility] [address] [phone] Maame Hamilton MD [address] [address] 05/03/2026 7:45 AM ESTOffice Visit [facility] [address] [place] [address] Erna Brizuela PA-C [address] [facility] [place] [address] documented as of this encounter Visit Diagnoses Not on filedocumented in this encounter Care Teams Team MemberRelationshipSpecialtyStart DateEnd Date Maame Hamilton MD [address] [phone] PCP - General01/05/22documented as of this encounter
--- OUTSIDE RECORDS SUMMARY | 2025-05-17 13:05 | XMS_ITS | Encounter Summary ---
Author Organization [facility] Address [address] [place] [address] Care Team Providers Care Bridal Consultant Name Role Phone Maame Hamilton MD Primary Care Provider [phone] Encounter Details DateTypeDepartmentCare Team (Latest Contact Info)Ftzkiyzzmgx22/17/2025Results Follow-Up [facility] Primary Care [address] [facility] [address] [place] [phone] Miya Choi MA Comprehensive metabolic panel, Lipid panel, CBC auto differential Social History Tobacco UseTypesPacks/DayYears UsedDateSmoking Tobacco: FormerCigarettes0.55.4 [...] relatives?Twice a week03/01/2024How often do you attend adventism or congregation services?More than 4 times per year4Do you belong to any clubs or organizations such as adventism groups, unions, fraternal or athletic luke ups, or school groups?No03/01/2024How often do you attend meetings of the clubs or organizations you belong to?Never4Are you , , , , never , or living with a partner?Mwxzjnd3103/01/2024 PHQ-2AnswerDate RecordedPatient Health Questionnaire-2 Ckndv91307/01/2024 Humiliation, Afraid, Rape, and Kick questionnaireAnswerDate RecordedWithin [...] housing, medical care, and heating?Not hard at all04/30/2025[facility] [place] of Occupational Health - Occupational Stress QuestionnaireAnswerDate [...] RecordedIn the past 12 months has the [employer], gas, oil, or water [employer] threatened to shut off services in your [...] were you homeless or living in a longterm (including now)?No04/30/2025Hunger Vital SignAnswerDate RecordedWithin the past 12 months, you worried that your food would run out before you got the money to buymore.Never true04/30/2025Within the past 12 months, the food you bought just didn't last and you didn't have money to get more.Never true04/30/2025Sex and Gender InformationValueDate RecordedSex Assigned at FwhhsWrno54/07/2023 10:15 AM EDTLegal YfmTxyh6411/15/2021 11:29 PM EDT Gender KulmcqvkAamb85/07/2023 10:15 AM EDTSexual OrientationHeterosexual or Xtrnysty12/07/2023 10:15 AM EDTdocumented as of this encounter Plan of Treatment DateTypeDepartmentCare Team (Latest Contact Info)Kojqzgknehq22/17/2026 8:30 AM EDTOffice Visit [facility] [address] [phone] Maame Hamilton MD [address] [phone] 05/03/2026 7:45 AM ESTOffice Visit [facility] [address] [place] [address] Erna Brizuela PA-C [address] [address] documented as of this encounter Visit Diagnoses Not on filedocumented in this encounter Care Teams Team MemberRelationshipSpecialtyStart DateEnd Date Maame Hamilton MD [address] [facility] [address] [place] [phone] [facility] - General01/05/22documented as of this encounter
--- NOTE | 2025-05-17 14:00 | CA_ITS ---
Patient Name: BLADIMIR MONTAGUE MR#: [id number] : 1960 Exam Date: 05/17/2025 Ordering Doctor: DR JULISA REYES M.D. ECHOCARDIOGRAM REPORT PROCEDURE: CA ECHO DOPPLER COMPLETE INDICATIONS: Shortness of breath, MII, cardiac stent, hypertension COMPARISON: None. DESCRIPTION: COMPLETE ECHOCARDIOGRAM Real-time transthoracic echocardiography with 2D, M-mode, spectral and color flow Doppler performed. QUALITY: Technical quality was good. LEFT VENTRICLE: Normal chamber size. Mild concentric left ventricular hypertrophy. Systolic function is normal. Estimated left ventricular ejection fraction is 55-60%. LV EF: Normal left ventricular ejection fraction, (>55%). DIASTOLIC: Normal diastolic function. ATRIAL SEPTUM: Visually appears intact. LEFT ATRIUM: Normal chamber size. RIGHT ATRIUM: Normal chamber size. RIGHT VENTRICLE: Normal chamber size. Normal right ventricular systolic function. TRICUSPID VALVE: Normal mobility and thickness. No stenosis with mild regurgitation. No evidence of pulmonary hypertension. RVSP 28 mmHg MITRAL VALVE: Normal mobility and thickness. No evidence of mitral valve stenosis. There is no mitral annular calcification. Trivial mitral regurgitation. AORTIC VALVE: Normal trileaflet appearance. No visible sclerosis. Normal leaflet mobility. No evidence of aortic valve stenosis. No aortic regurgitation. AORTIC ROOT: Normal diameter and appearance, measuring 4.0 cm. Ascending aorta is normal in size, measuring 3.1 cm. PULMONIC VALVE: Normal thickness and mobility. No stenosis. No regurgitation. PERICARDIUM: No evidence of pericardial effusion. IVC: Collapses with inspiration. PLEURA: CONCLUSION: 1. Mild concentric left ventricular hypertrophy with normal systolic function. Estimated LVEF is 55 to 60%. 2. Normal right ventricular size and systolic function. 3. No significant valvular dysfunction. 4. Normal diastolic function. 5. Normal right-sided pressures. Adult Echocardiography Procedure Report Left Ventricle LVEDD (3.7 - 5.6 cm): 4.43 cm LVESD (2.2 - 4.0 cm): 3.14 cm LVIVS thickness (0.6 - 1.2 cm): 1.44 cm LVPW thickness (0.5 - 1.0 cm): 1.16 cm e': 0.07 m/s E - e': 8.33 LVOT Max Gradient: 3.56 mm[Hg] LVOT Area (cm2): 0.94 m/s Peak Velocity (LVOT): 0.94 m/s Mean Velocity (LVOT): 0.57 m/s LVOT Diameter 2.36 cm Left Ventricular Ejection Fraction: 55-60 % Left Atrium LA Volume Index (2D A2C): 28.40 ml/m2 Left Atrium Systolic Dimension: 4.02 cm Mitral Valve MV E to A Ratio: 0.76 Mitral Valve A-Wave Peak Velocity: 0.77 m/s Mitral Valve E-Wave Peak Velocity: 0.58 m/s Right Ventricle Aorta AO Root Diam: 4.03 cm Ascending Ao Diam: 3.13 cm Aortic Valve AoV Area (Peak Gurmeet): 4.01 cm2, 4.01 cm2 AoV Area (VTI): 3.19 cm2, 3.19 cm2 Peak Velocity(Antegrade Flow): 1.03 m/s Peak Gradient(Antegrade Flow): 4.22 mm[Hg] Mean Velocity(Antegrade Flow): 0.57 m/s Mean Gradient(Antegrade Flow): 1.68 mm[Hg] Velocity Time Integral: 23.40 cm Tricuspid Valve Peak Velocity (Regurgitant Flow): 1.88 m/s, 2.48 m/s Pulmonic Valve Mean Gradient: 1.33 mm[Hg] Mean Velocity: 0.54 m/s Peak Velocity: 0.74 m/s Peak Gradient: 2.21 mm[Hg] Right Atrium Right Atrium Systolic Pressure: 48.85 ml, 48.85 ml Dictated by: Herrera Jaramillo M.D. on 05/17/2025 at 16:07 Approved by: Herrera Jaramillo M.D. on 05/17/2025 at 16:11
== END 2025-05-17 13:02 | disposition home or self-care (01) ==
LOC: CARD 13:01
PROVIDERS: Visit Provider Internal Medicine Interventional Cardiology
DX: R06.02 Shortness of breath (principal)
CPT/HCPCS: 93306